=== PATIENT | male | born 1970 | race American Indian/Alaskan Native ===

== ENCOUNTER 2019-03-07 19:06 | Emergency (ER) | payer BC ==
--- NOTE | 2019-03-07 20:12 | Event Note ---
ED Screening Note Date of service: 03/07/19 Time: 20:08 ED Screening Note: 48 y o male presents to ED phil visit to PCP for elevated BP was given clonidine with no relief and was sent in to ED This initial assessment/diagnostic orders/clinical plan/treatment(s) is/are subject to change based on patients health status, clinical progression and re- assessment by fellow clinical providers in the ED. Further treatment and workup at subsequent clinical providers discretion. Patient/guardian urged not to elope from the ED as their condition may be serious if not clinically assessed and managed. Initial orders include:
--- NOTE | 2019-03-07 20:18 | Emergency Department Report ---
Chief Complaint: High BP Stated Complaint: BLOOD PRESSURE HIGH Time Seen by Provider: 03/07/19 20:12 - HPI History of Present Illness: 48 y o male with a PMH for elevated BP sent from pcp office for elevated blood pressure. Patient states he was at work when the nurse took his blood pressure and was elevated so he was told to the ER. Patient states he has a primary care physician that he follows up with. Since that he went to his primary care physician where he got clonidine to reduce his blood pressure. Patient states that when her pressure was not coming down he was told to finger to the ER. Upon arrival here in the ER patient's blood pressure is normal at 129/76 Patient denies any symptoms such as fevers/chills/nausea vomiting, chest pain, shortness of breath, headache or blurry vision pt denies any symptoms - ROS Review of Systems: Noted in HPI. All system reviewed and negative - Exam Physical Exam: General: Alert and oriented 3 no acute distress Heart: Regular rate and rhythm, no signs of murmur, nontender to palpation MSE screening note: Focused history and physical exam performed. Due to findings the following was ordered: ED Medical Decision Making - Medical Decision Making I discussed with the patient Taking his blood pressure medication as prescribed. Discussed follow-up with his primary care physician. Patient had a nonemergency visit to the ED today. Spine he understands instructions and will follow-up ED Disposition for MSE Clinical Impression: Hypertension Disposition: DC-01 TO HOME OR SELFCARE Is pt being admited?: No Does the pt Need Aspirin: No Condition: Stable Instructions: Hypertension (ED) Additional Instructions: follow up your pcp return to ED if any other new or worsening pain. Prescriptions: NIFEdipine [Nifedipine] 20 mg PO DAILY #20 capsule Referrals: PRIMARY CARE, [Primary Care Provider] - 3-5 Days Forms: Work/School Release Form(ED) Time of Disposition: 20:24
[2019-03-07 21:25] VITALS: BP 129/74
== END 2019-03-07 21:36 | disposition home or self-care (01) ==
LOC: ED 19:06
DX: I10 Essential (primary) hypertension (principal)
CPT/HCPCS: 99282

== ENCOUNTER 2020-09-15 10:01 | Emergency (ER) | payer BC ==
[2020-09-15] MEDS ORDERED: ASPIRIN 325 MG TAB PO ONE (10:09)
--- NOTE | 2020-09-15 10:13 | Event Note ---
ED Screening Note Date of service: 09/15/20 Time: 10:12 ED Screening Note: Patient complains of indigestion last night and chest pain that started 2 hours ago that is sharp in nature History of hypertension No shortness of breath This initial assessment/diagnostic orders/clinical plan/treatment(s) is/are subject to change based on patients health status, clinical progression and re- assessment by fellow clinical providers in the ED. Further treatment and workup at subsequent clinical providers discretion. Patient/guardian urged not to elope from the ED as their condition may be serious if not clinically assessed and managed. Initial orders include: Labs EKG Chest x-ray
[2020-09-15 10:47] LABS: Hematocrit 40.4 % (35.5-45.6); Mean Corpuscular HGB Conc 35 % (32-34); Mean Corpuscular Volume 94 fl (84-94); Platelet Count 319 K/mm3 (140-440); Red Blood Count 4.32 M/mm3 (3.65-5.03); Red Cell Distribution Width 13.4 % (13.2-15.2)
[2020-09-15 10:53] LABS: Basophils % (Auto) 0.3 % (0.0-1.8); Eosinophils % (Auto) 0.2 % (0.0-4.3); Lymphocytes # (Auto) 0.6 K/mm3 (1.2-5.4); Lymphocytes % (Auto) 10.5 % (13.4-35.0); Monocytes # (Auto) 0.3 K/mm3 (0.0-0.8); Monocytes % (Auto) 4.6 % (0.0-7.3)
[2020-09-15 11:04] LABS: Alanine Aminotransferase 16 units/L (7-56); Albumin 4.4 g/dL (3.9-5); BUN/Creatinine Ratio 13; Blood Urea Nitrogen 13 mg/dL (9-20); Calcium 9.4 mg/dL (8.4-10.2); Hemolysis Index 3
--- NOTE | 2020-09-15 11:09 | XRay Report ---
CHEST 2 VIEWS INDICATION / CLINICAL INFORMATION: chest pain. COMPARISON: None available. FINDINGS: SUPPORT DEVICES: None. HEART / MEDIASTINUM: No significant abnormality. LUNGS / PLEURA: No significant pulmonary or pleural abnormality. No pneumothorax. ADDITIONAL FINDINGS: No significant additional findings. IMPRESSION: 1. No acute findings. Signer Name: Rigo Rangel MD Signed: 09/15/2020 11:04 AM Workstation Name: [id number]
--- NOTE | 2020-09-15 14:34 | Emergency Department Report ---
ED Chest Pain HPI - General Chief Complaint: Chest Pain Stated Complaint: CHEST PAIN Time Seen by Provider: 09/15/20 10:09 Source: patient Mode of arrival: Ambulatory Limitations: No Limitations - History of Present Illness Initial Comments: Patient is 49 years old male with history of hypertension. Patient presented to the ER complaining of chest pain, substernal with no radiation. Patient stated that he felt the pain as acid reflux going to his throat. Patient stated that he went away however came back again while he was in the meeting. Patient denies any shortness of breath. No nausea or vomiting. MD Complaint: chest pain -: Last night Onset: during rest Pain Location: substernal Pain Radiation: none Severity: moderate Quality: sharp, other (Burning sensation) - Related Data Previous Rx's Medication Instructions Recorded Last Taken Type NIFEdipine [Nifedipine] 20 mg PO DAILY #20 capsule 03/07/19 Unknown Rx Allergies Allergy/AdvReac Type Severity Reaction Status Date / Time No Known Allergies Allergy Verified 09/15/20 10:09 Heart Score - HEART Score History: Slightly suspicious EKG: Normal Age: 45-65 Risk factors: 1-2 risk factors Troponin: < normal limit HEART Score: 2 - EKG Read Time Time EKG Completed: 10:17 EKG Read Time: 10:21 - Critical Actions Critical Actions: 0-3 pts:0.9-1.7%risk of adverse cardiac event.Candidate for discharge ED Review of Systems ROS: Stated complaint: CHEST PAIN Other details as noted in HPI Comment: All other systems reviewed and negative Constitutional: denies: chills, fever Respiratory: denies: cough, shortness of breath, SOB with exertion Cardiovascular: chest pain Gastrointestinal: denies: abdominal pain, nausea, vomiting Neurological: denies: headache ED Past Medical Hx - Past Medical History Hx Hypertension: Yes - Social History Smoking Status: Never Smoker Substance Use Type: None - Medications Home Medications: Home Medications Medication Instructions Recorded Confirmed Last Taken Type NIFEdipine [Nifedipine] 20 mg PO DAILY #20 capsule 03/07/19 Unknown Rx ED Physical Exam - General Limitations: No Limitations General appearance: alert, in no apparent distress - Head Head exam: Present: atraumatic, normocephalic, normal inspection - Eye Eye exam: Present: normal appearance - ENT ENT exam: Present: normal exam, normal orophraynx, mucous membranes moist - Neck Neck exam: Present: normal inspection, full ROM. Absent: tenderness, meningismus - Respiratory Respiratory exam: Present: normal lung sounds bilaterally - Cardiovascular Cardiovascular Exam: Present: regular rate, normal rhythm, normal heart sounds - GI/Abdominal GI/Abdominal exam: Present: soft, normal bowel sounds. Absent: distended, tenderness, guarding, rebound, rigid, organomegaly, mass, bruit, pulsatile mass, hernia - Extremities Exam Extremities exam: Present: normal inspection, full ROM, normal capillary refill. Absent: pedal edema, calf tenderness - Back Exam Back exam: Present: normal inspection, full ROM. Absent: CVA tenderness (R), CVA tenderness (L) - Neurological Exam Neurological exam: Present: alert, oriented X3, CN II-XII intact, normal gait, reflexes normal. Absent: motor sensory deficit - Psychiatric Psychiatric exam: Present: normal mood - Skin Skin exam: Present: warm, intact, normal color ED Course Vital Signs 09/15/20 10:24 Temperature 98.8 F Pulse Rate 68 Respiratory 12 Rate Blood Pressure 159/89 [Left] O2 Sat by Pulse 98 Oximetry ED Medical Decision Making - Lab Data Result diagrams: 09/15/20 10:24 09/15/20 10:24 - EKG Data -: EKG Interpreted by De EKG shows normal: sinus rhythm Rate: normal - EKG Data Interpretation: no acute changes - Radiology Data Radiology results: report reviewed - Medical Decision Making Patient is 49 years old male with history of hypertension. Patient presented to the ER complaining of chest pain, substernal with no radiation. Patient stated that he felt the pain as acid reflux going to his throat. Patient stated that he went away however came back again while he was in the meeting. Patient denies any shortness of breath. No nausea or vomiting. EKG is unremarkable. Labs reviewed and is unremarkable including a negative troponin x3. Chest x-ray is negative for acute finding. Patient symptoms most likely related to acid reflux. Patient given prescription for Nexium and advised to follow-up with his primary in the next 2 to 3 days and to return to the ER if he develop any new symptoms. Critical care attestation.: If time is entered above; I have spent that time in minutes in the direct care of this critically ill patient, excluding procedure time. ED Disposition Clinical Impression: Acute chest pain Disposition: - TO HOME OR SELFCARE Is pt being admited?: No Condition: Stable Instructions: Chest Pain (ED), Nonspecific Chest Pain, Adult Referrals: YONANA CERON MD [Primary Care Provider] - 3-5 Days
--- NOTE | 2020-09-15 14:51 | Electrocardiograph Report ---
[facility] Test Date: 2020-09-15 Test Time: 10:17:23 Pat Name: CHASE URIBE Department: Room: Gender: M Weapons Officer: : 1970 Requested By: ED DOC Order Number: [id number] Reading MD: Helga Schmidt Measurements Intervals [place] Rate: 64 P: 49 MI: 174 QRS: 15 QRSD: 106 T: 24 QT: 401 QTc: 413 Interpretive Statements Sinus rhythm No previous ECG available for comparison Electronically Signed On 09-15-2020 14:51:11 EDT by Helga Schmidt
[2020-09-15 16:29] VITALS: BP 152/88
== END 2020-09-15 17:15 | disposition home or self-care (01) ==
LOC: ED 10:01
DX: R07.89 Other chest pain (principal); I10 Essential (primary) hypertension; Z79.899 Other long term (current) drug therapy
CPT/HCPCS: 36415; 71046; 80053; 84484; 85025; 93005